=== PATIENT | male | born 1950 | race African-American/Black ===

== ENCOUNTER → 2017-12-19 | Day surgery (SDC) | payer MEDICARE ==
[2017-12-13 14:43] LABS: INR 0.94; PROTHROMBIN TIME 13.4 seconds (11.9-14.5)
[2017-12-13 14:44] LABS: PARTIAL THROMBOPLASTIN TIME 26.1 seconds (23.8-35.5)
--- NOTE | 2017-12-13 15:12 | Diagnostic Imaging Report ---
EXAMINATION: PA and lateral views of the chest. COMPARISON: None CLINICAL HISTORY: Preoperative evaluation, cystoscopy DISCUSSION: Lines/tubes: None. Lungs: The lungs are well inflated and clear. No pneumonia or pulmonary edema. Pleura: No pleural effusion or pneumothorax. Heart and mediastinum: The cardiomediastinal silhouette is normal. Bones and soft tissues: No acute bony abnormalities. IMPRESSION: No acute cardiopulmonary abnormalities. Signed by: Dr. Anthony Christian M.D. on 12/13/2017 3:09 PM
[~2017-12-19] MED LIST: CEFTRIAXONE SOD 1 GM VIAL ONE; CENTRUM SILVER1 EAC3; DEXAMETHASONE SOD PHOS INJ 4 MG/ML VIAL IV ONE; IOPAMIDOL 610MG/1ML 300 MG/ML VIAL IV ONE; LIDOCAINE HCL 2% LOCAL INJ 5 ML SDV VIAL INJ ONE; MIDAZOLAM HCL 2 MG/2 ML VIAL ONE; NIFEDIPINE ER30 M1; OMEGA 3 FISH O1 EACH; ONDANSETRON HCL INJ 2 MG/ML VIAL IV ONE; PRILOSEC; PROPOFOL IV EMULSION 10 MG/ML 20 ML VIAL IV ONE; SEVOFLURANE INHAL SOLN 250 ML PEN BTL INH ONE; [UNRECOGNIZED DRUG - OTHER]; [UNRECOGNIZED DRUG - OTHER]
--- OUTSIDE RECORDS SUMMARY | 2017-12-19 06:40 | XMS REPORT ---
Author Author [facility] Address Unknown Phone Unavailable Care Team Providers Care Air Hole Driller Name Role Phone Amirah CANADA Unavailable Unavailable Problems This patient has no known problems. Allergies, Adverse Reactions, Alerts This patient has no known allergies or adverse reactions. Medications This patient has no known medications. Results Test Description Test Time Test Comments Text Results Atomic Results Result Comments CHEST 2 VIEWS 2017-12-13 15:08:00 [place] [id number] Patient Name: LAUREN BUSTAMANTE MR #: [id number] : 1950 Age/Sex: 67/M Req #: [id number] [facility] Physician: Ordered by: [place] CANADA MD Report #: [id number] Location: OR Room/Bed: Procedure: [id number] DX/CHEST 2 VIEWS Exam Date: 12/13/17 Exam Time: 1450 REPORT STATUS: Signed EXAMINATION: PA and lateral views of the chest. COM PARISON: None CLINICAL HISTORY: Preoperative evaluation, cystoscopy DISCUSSION: Lines/tubes: None. Lungs: The lungs are well inflated and clear. No pneumonia or pulmonary edema. Pleura: No pleural effusion or pneumothorax. Heart and mediastinum: The cardiomediastinal silhouette is normal. Bones and soft tissues: No acute bony abnormalities. IMPRES CHAUNCEY: No acute cardiopulmonary abnormalities. Signed by: Dr. Nohelia Zimmerman M.D. on 12/13/2017 3:09 PM Dictated By: NOHELIA ZIMMERMAN MD 08 Transcribed By: JULIÁN on 12/13/171508 COPY TO: [place] CANADA MD
[2017-12-19 10:50] VITALS: BP 121/85
--- NOTE | 2018-01-02 02:49 | Operative Report ---
DATE OF PROCEDURE: December 19, 2017 PREOPERATIVE DIAGNOSIS: Bladder outlet obstruction. POSTOPERATIVE DIAGNOSIS: Bladder outlet obstruction. PROCEDURE PERFORMED: Cystoscopy. ANESTHESIA: MAC anesthesia. ESTIMATED BLOOD LOSS: Minimal. INDICATIONS AND HISTORY: Flavio Nguyễn is a 67-year-old gentleman with a long history of bladder outlet obstruction who was having lessened response to medical therapy but needed it in the past. He now presents for surgical management of this problem. DETAILS OF PROCEDURE: Patient was brought in the operating room and placed in supine position, and after administration of MAC anesthesia, was prepped and draped in usual sterile fashion. Flexible cystoscopy was performed. The anterior and posterior urethra were noted to be normal. The prostate revealed mild lateral lobar hyperplasia with moderate elevation at the median bar. Entrance into the bladder was mildly difficult. Upon entrance into the bladder, the ureteral orifices were in normal anatomic position and produced clear efflux. There was grade 1 trabeculation throughout. There were no diverticula. There were no mucosal lesions identified. The bladder capacity appeared to be normal. The flexible cystoscope was then removed, and the patient was returned to supine position. Anesthesia was reversed, and he was transferred to a bed and taken to the postanesthesia care unit in good condition. Of note, needle and instrument count were correct at the conclusion of the case. Job#: [id number] JEANNETTE
== END | disposition home or self-care (01) ==
LOC: OR 06:38
PROVIDERS: ATTEND Urology
DX: N32.0 Bladder-neck obstruction (principal); N32.89 Other specified disorders of bladder; N40.0 Benign prostatic hyperplasia without lower urinary tract symptoms; I10 Essential (primary) hypertension; B19.20 Unspecified viral hepatitis C without hepatic coma; I45.10 Unspecified right bundle-branch block; Z01.810 Encounter for preprocedural cardiovascular examination; Z01.812 Encounter for preprocedural laboratory examination; Z01.818 Encounter for other preprocedural examination
CPT/HCPCS: 36415; 52000; 71046; 85610; 85730; 93005; J0696; J1100; J2001; J2250; J2405; J2704